=== PATIENT | male | born 1980 | race African-American/Black ===

== ENCOUNTER 2017-02-26 10:33 | Emergency (ER) | payer OTHER ==
[~2017-02-26] VITALS: Ht 175.3 cm; Wt 80.0 kg
[2017-02-26] MEDS ORDERED: OXYMETAZOLINE HCL NASAL SPRAY 15ML BOTHNSTRLS ONE (11:00)
[2017-02-26 11:16] LABS: BASOPHILS % 1.1 % (0.0-2.0); EOSINOPHILS % 0.2 % (0.0-5.0); HEMATOCRIT. 51.3 % (42.0-52.0); HEMOGLOBIN. 17.9 g/dL (14.0-18.0); LYMPHOCYTES % 28.2 % (20.0-50.0); MEAN CORPUSCULAR VOLUME 88.8 fL (80.0-94.0); MEAN PLATELET VOLUME 9.6 fl (7.4-10.4); MONOCYTES % 7.9 % (2.0-8.0); NEUTROPHILS % 62.6 % (40.0-76.0); PLATELET 139 x1000/uL (130-400); RED BLOOD CELL COUNT 5.78 mill/uL (4.7-6.1)
[2017-02-26 11:22] LABS: PROTHROMBIN TIME 10.5 sec
[2017-02-26 16:30] VITALS: BP 126/74
== END 2017-02-26 16:57 | disposition home or self-care (01) ==
LOC: ER 10:50
DX: F10.229 Alcohol dependence with intoxication, unspecified (principal); I10 Essential (primary) hypertension; R04.0 Epistaxis; Y90.8 Blood alcohol level of 240 mg/100 ml or more
CPT/HCPCS: 36415; 85025; 85610; 99284; G0482

== ENCOUNTER 2024-12-20 21:39 | Inpatient (IN) | payer OTHER ==
[~2024-12-20] VITALS: Ht 167.6 cm; Wt 72.6 kg
[2024-12-20] MEDS: SODIUM CHLORIDE 0.9% 1,000 ML IV ONE (22:43)
[2024-12-20] MEDS: FAMOTIDINE 20MG/2ML VIAL IV ONE (22:44)
[2024-12-20] MEDS: ONDANSETRON HCL 4MG/2ML INJ IV STA (22:44)
[2024-12-20 23:29] LABS: BASOPHILS % 0.1 % (0.0-2.0); HEMATOCRIT. 46.5 % (42.0-52.0); HEMOGLOBIN. 15.8 g/dL (14.0-18.0); LYMPHOCYTES % 7.8 % (20.0-50.0); MEAN CORPUSCULAR HEMOGLOBIN 27.8 pg (28.0-32.0); MEAN CORPUSCULAR HGB CONC 33.9 g/dL (31.0-37.0); MEAN CORPUSCULAR VOLUME 81.8 fL (80.0-94.0); MEAN PLATELET VOLUME 9.5 fl (7.4-10.4); MONOCYTES % 9.6 % (2.0-8.0); NEUTROPHILS % 82.5 % (40.0-76.0); PLATELET 132 x1000/uL (130-400); RED BLOOD CELL COUNT 5.69 mill/uL (4.7-6.1); RED CELL DISTRIBUTION WIDTH 18.1 % (11.6-14.6); WHITE BLOOD COUNT 8.6 x1000/uL (4.5-11.0)
[2024-12-20 23:44] LABS: CHLORIDE 95 mEq/L (98-107); SODIUM 137 mEq/L (136-145)
[2024-12-20 23:45] LABS: CARBON DIOXIDE 25 mEq/L (21-32)
[2024-12-20 23:50] LABS: ETHANOL BLOOD 161 mg/dL (<10); GLUCOSE 160 mg/dL (70-105); UREA NITROGEN BLOOD 31 mg/dL (9-23)
[2024-12-20 23:53] LABS: POTASSIUM 2.8 mEq/L (3.5-5.1)
[2024-12-21] MEDS: KCL 20MEQ/100ML PREMIX 100 ML IV SCH (00:41)
[2024-12-21] MEDS: LOSARTAN 50 MG TABLET PO ONE (01:34)
[2024-12-21 02:44] VITALS: BP 142/91; PULSE 90; RESP 20; TEMP 37.3
[2024-12-21 07:59] VITALS: BP 124/83; PULSE 80; RESP 20; TEMP 36.7; O2SAT 97
[2024-12-21] MEDS: ONDANSETRON HCL 4MG/2ML INJ IV PRN (08:36)
[2024-12-21] MEDS: PANTOPRAZOLE SODIUM 40 MG/VIAL IV SCH (08:36)
[2024-12-21] MEDS: MULTIVITAMINS,THER W-MINERALS TABLET PO SCH (08:55)
[2024-12-21] MEDS: LOSARTAN 50 MG TABLET PO SCH (08:55)
[2024-12-21] MEDS: THIAMINE HCL 100MG TABLET PO SCH (08:55)
[2024-12-21] MEDS ORDERED: LOSARTAN 50 MG TABLET PO SCH (09:00)
[2024-12-21] MEDS ORDERED: AMLODIPINE 10MG TABLET PO SCH (09:00)
[2024-12-21] MEDS ORDERED: FAMOTIDINE 20MG/2ML VIAL IV SCH (09:00)
[2024-12-21] MEDS ORDERED: ATORVASTATIN CALCIUM 40MG TABLET PO SCH ×2 (09:00→21:00)
[2024-12-21] MEDS ORDERED: AMLODIPINE 5MG TABLET PO SCH (09:00)
[2024-12-21] MEDS ORDERED: LOSARTAN 100 MG TABLET PO SCH (09:00)
[2024-12-21 11:06] LABS: CHLORIDE 92 mEq/L (98-107); POTASSIUM 3.5 mEq/L (3.5-5.1); SODIUM 133 mEq/L (136-145)
[2024-12-21 11:09] LABS: CALCIUM 9.3 mg/dL (8.7-10.4); CARBON DIOXIDE 27 mEq/L (21-32)
[2024-12-21 11:14] LABS: ALANINE AMINOTRANSFERASE 172 IU/L (10-49); ALBUMIN 4.6 g/dL (3.2-4.8); ASPARTATE AMINOTRANSFERASE 236 IU/L (<34); GLUCOSE 147 mg/dL (70-105); TRIGLYCERIDE 132 mg/dL (0-150); UREA NITROGEN BLOOD 28 mg/dL (9-23)
[2024-12-21 11:15] LABS: LDL CHOLESTEROL 200 mg/dL (5-100)
[2024-12-21 11:16] LABS: BILIRUBIN TOTAL 1.5 mg/dL (0.1-1.0); CHOLESTEROL 293 mg/dL (<200); HDL CHOLESTEROL 69 mg/dL (>55)
[2024-12-21 11:17] LABS: PROTEIN TOTAL 7.6 g/dL (6.0-8.3)
[2024-12-21 11:49] LABS: HEPATITIS B SURFACE ANTIGEN NEGATIVE (Negative)
[2024-12-21 12:10] LABS: HEPATITIS C AB NON REACTIVE (Neg) (Negative)
[2024-12-21 12:19] VITALS: BP 157/91; PULSE 62; RESP 18; TEMP 36.9; O2SAT 96
[2024-12-21] MEDS: CHLORDIAZEPOXIDE 25MG CAPSULE PO SCH (14:31)
[2024-12-21 15:55] VITALS: BP 144/60; PULSE 60; RESP 18; TEMP 37.1; O2SAT 97
[2024-12-21 20:00] VITALS: BP 131/88; PULSE 71; RESP 18; TEMP 37.1; O2SAT 100
[2024-12-22] VITALS: BP 137/88; PULSE 66; RESP 20; TEMP 37.1; O2SAT 95
[2024-12-22 04:00] VITALS: BP 144/82; PULSE 68; RESP 20; TEMP 37.1; O2SAT 99
[2024-12-22 07:48] VITALS: BP 131/91; PULSE 74; RESP 18; TEMP 36.8; O2SAT 100
[2024-12-22 12:00] VITALS: BP 135/68; PULSE 85; RESP 18; TEMP 36.7; O2SAT 98
[2024-12-22 16:00] VITALS: BP 125/87; PULSE 80; RESP 16; TEMP 36.8; O2SAT 98
[2024-12-22 20:00] VITALS: BP 147/90; PULSE 81; RESP 18; TEMP 37; O2SAT 98
[2024-12-23] VITALS: BP 139/100; PULSE 82; RESP 20; TEMP 37.1; O2SAT 98
[2024-12-23 04:00] VITALS: BP 150/108; PULSE 71; RESP 18; TEMP 36.7; O2SAT 98
[2024-12-23 08:00] VITALS: BP 169/111; PULSE 73; RESP 18; TEMP 36.9; O2SAT 97
[2024-12-23 09:30] VITALS: BP 141/103
[2024-12-23 12:00] VITALS: BP 148/113; PULSE 92; RESP 20; TEMP 37.1; O2SAT 100
[2024-12-23 12:37] VITALS: BP 148/113; PULSE 92; TEMP 98.7; O2SAT 100
== END 2024-12-23 14:49 | disposition home or self-care (01) | DRG 775 ==
LOC: ER 21:39 → 7WST 12-21 00:57 → ENRESERV 12-21 01:24
PROVIDERS: ADMIT Internal Medicine; ATTEND Internal Medicine
DX: F10.229 Alcohol dependence with intoxication, unspecified (principal); E78.5 Hyperlipidemia, unspecified; E87.6 Hypokalemia; I10 Essential (primary) hypertension; Z90.49 Acquired absence of other specified parts of digestive tract; Y90.6 Blood alcohol level of 120-199 mg/100 ml
CPT/HCPCS: 36415; 80048; 80053; 80061; 80320; 83036; 85025; 86705; 87340; 99291; J1308; J2405; J2470; J3480; J7030; G0480